=== PATIENT | female | born 1995 | race Caucasian/White ===

== ENCOUNTER 2016-12-25 20:37 | Emergency (ER) | payer OTHER ==
[~2016-12-25] VITALS: Ht 180.3 cm; Wt 149.7 kg
[2016-12-25 22:03] VITALS: BP 132/52
[2016-12-25] MEDS ORDERED: IBUPROFEN 400 MG TABLET ONE (22:06)
--- NOTE | 2016-12-25 22:06 | NUR ---
DR ALBERTO AT BEDSIDE FOR EVAL.
[2016-12-25] MEDS ORDERED: ACETAMINOPHEN ES 500 MG TABLET ONE (22:07)
[2016-12-25] MEDS ORDERED: IBUPROFEN 400 MG TABLET PO ONE (22:30)
[2016-12-25] MEDS ORDERED: ACETAMINOPHEN 325 MG TABLET PO ONE (22:30)
== END 2016-12-25 22:37 | disposition home or self-care (01) ==
LOC: ER 20:37
DX: J06.9 Acute upper respiratory infection, unspecified (principal); G89.4 Chronic pain syndrome
CPT/HCPCS: 99283; A4606; Z7610

== ENCOUNTER 2017-04-05 01:05 | Emergency (ER) | payer SELFPAY ==
[~2017-04-05] VITALS: Ht 180.3 cm; Wt 145.1 kg
[2017-04-05 01:10] VITALS: BP 158/82
[2017-04-05] MEDS ORDERED: DEXAMETHASONE 1 MG TABLET PO ONE (01:30)
[2017-04-05] MEDS ORDERED: diphenhydrAMINE HCL 25 MG CAPSULE PO ONE (01:30)
[2017-04-05] MEDS ORDERED: diphenhydrAMINE HCL 50 MG CAPSULE ONE (01:34)
[2017-04-05] MEDS ORDERED: DEXAMETHASONE 1 MG TABLET ONE (01:34)
== END 2017-04-05 01:44 | disposition home or self-care (01) ==
LOC: ER 01:05
DX: R21 Rash and other nonspecific skin eruption (principal); G89.4 Chronic pain syndrome; G90.50 Complex regional pain syndrome I, unspecified
CPT/HCPCS: 99282; A4606; J8540; Q0163; Z7610